=== PATIENT | male | born 1975 | race African-American/Black ===

== ENCOUNTER 2016-11-21 11:26 | Inpatient (IN) | payer OTHER ==
[2016-11-21 15:42] VITALS: BMI 21.6
--- NOTE | 2016-11-21 16:22 | HP ---
[id number] 4d 4-Moderate,w/Arms Extend Anxiety: 4-Mod. Anxious/Guarded Agitation: 4-Moderately Restless Paroxysmal Sweats: 1-Minimal Palms Moist Orientation: 0-Oriented Tacttile Disturbances: 0-None Auditory Disturbances: 0-None Visual Disturbances: 0-None Headache: 0-None Present CIWA-Ar Total Score: 14 Admission ROS BHS - HPI Chief Complaint: withdrawal sx Allergies/Adverse Reactions: Allergies Allergy/AdvReac Type Severity Reaction Status Date / Time shellfish derived Allergy Severe Hives Verified 11/21/16 16:17 No Known Drug Allergies Allergy Verified 11/21/16 16:33 History of Present Illness: 41 years old male with long history of alcohol nicotine dependence has asthma denies mental illness is admitted to detox Exam Limitations: No Limitations - Ebola screening Have you traveled outside of the country in the last 21 days: No Have you had contact with anyone from an Ebola affected area: No Have you been sick,other than usual withdrawal symptoms: No Do you have a fever: No - Review of Systems Constitutional: Chills, Loss of Appetite, Changes in sleep, Unintentional Wgt. Loss, Unexplained wgt Loss EENT: reports: No Symptoms Reported Respiratory: reports: SOB with Exertion Cardiac: reports: No Symptoms Reported GI: reports: Nausea, Poor Appetite, Poor Fluid Intake, Abdominal cramping : reports: No Symptoms Reported Musculoskeletal: reports: No Symptoms Reported Integumentary: reports: Dryness Neuro: reports: Tremors Endocrine: reports: No Symptoms Reported Hematology: reports: No Symptoms Reported Psychiatric: reports: No Sypmtoms Reported, Judgement Intact, Mood/Affect Appropiate, Orientated x3 Other Systems: Reviewed and Negative Patient History - Patient Medical History Hx Anemia: No Hx Asthma: Yes Hx Chronic Obstructive Pulmonary Disease (COPD): No Hx Cancer: No Hx Cardiac Disorders: No Hx Congestive Heart Failure: No Hx Hypertension: No Hx Hypercholesterolemia: No Hx Pacemaker: No HX Cerebrovascular Accident: No Hx Seizures: No Hx Dementia: No Hx Diabetes: No Hx Gastrointestinal Disorders: No Hx Liver Disease: No Hx Genitourinary Disorders: No Hx Sexually Transmitted Disorders: No Hx Renal Disease (ESRD): No Hx Thyroid Disease: No Hx Human Immunodeficiency Virus (HIV): No Hx Hepatitis C: No Hx Depression: No Hx Suicide Attempt: No Hx Bipolar Disorder: No Hx Schizophrenia: No - Patient Surgical History Past Surgical History: No - PPD History Previous Implant?: Yes Documented Results: Negative w/o proof Implanted On Prior [facility] Admission?: No PPD to be Administered?: Yes - Smoking Cessation Smoking history: Current every day smoker Have you smoked in the past 12 months: Yes Aproximately how many cigarettes per day: 10 Cigars Per Day: 0 Hx Chewing Tobacco Use: No Initiated information on smoking cessation: Yes 'Breaking Loose' booklet given: 11/21/16 - Substance & Tx. History Hx Alcohol Use: Yes Hx Substance Use: No Substance Use Type: Alcohol Hx Substance Use Treatment: No - Substances Abused Alcohol-beer/wine/vodka Route: Oral Frequency: Daily Amount used: 1 case/2-3 pts. BEER+VOLKA Age of first use: 14 Date of Last Use: 11/20/16 Family Disease History - Family Disease History Family Disease History: Respiratory: Grandparent, Father, Mother, Brother, Sister, Son, Daughter Admission Physical Exam BHS - Vital Signs Vital Signs: Vital Signs - 24 hr 11/21/16 15:40 Temperature 97.0 F L Pulse Rate 67 Respiratory 18 Rate Blood Pressure 102/71 - Physical General Appearance: Yes: Appropriately Dressed, Mild Distress, Thin, Tremorous, Irritable, Sweating, Anxious HEENTM: Yes: Hearing grossly Normal, Normal ENT Inspection, Normocephalic, Normal Voice Respiratory: Yes: Chest Non-Tender, Lungs Clear, Normal Breath Sounds, No Respiratory Distress, No Accessory Muscle Use Neck: Yes: Supple, Trachea in good position Breast: Yes: Breasts Symetrical Cardiology: Yes: Regular Rhythm, S1, S2, Bradycardia Abdominal: Yes: Non Tender, Soft Genitourinary: Yes: Within Normal Limits Back: Yes: Normal Inspection Musculoskeletal: Yes: full range of Motion, Gait Steady Extremities: Yes: Normal Inspection, Normal Range of Motion, Non-Tender, Tremors Neurological: Yes: Fully Oriented, Alert, Motor Strength 5/5, Normal Mood/Affect , Normal Response Integumentary: Yes: Dry, Warm Lymphatic: Yes: Within Normal Limits - Diagnostic (1) Alcohol dependence with uncomplicated withdrawal Current Visit: Yes Status: Acute (2) Asthma Current Visit: Yes Status: Chronic Qualifiers: Asthma severity: mild persistent Asthma complication type: with status asthmaticus Qualified Code(s): J45.32 - Mild persistent asthma with status asthmaticus (3) Weight loss Current Visit: Yes Status: Acute (4) Nicotine dependence Current Visit: Yes Status: Acute Qualifiers: Nicotine product type: cigarettes Substance use status: in withdrawal Qualified Code(s): F17.213 - Nicotine dependence, cigarettes, with withdrawal (5) Dry skin Current Visit: Yes Status: Acute Cleared for Admission BHS - Detox or Rehab BHS Level of Care: Medically Managed Detox Regimen/Protocol: Librium BHS Breath Alcohol Content Breath Alcohol Content: 0 Vital Signs - Vital Signs Vital Signs Refused: No Temperature: 97 F Temperature Source: Oral Pulse Rate: 67 Respiratory Rate: 18 Blood Pressure: 102/71 BP Location: Left Arm Blood Pressure Position: Sitting - Height Height: 5 ft 5 in - Weight Weight: 130 lb Weight Measurement Method: Standing Scale Body Mass Index (BMI): 21.6 - Bowel Function Bowel Movement: Yes Urine Drug Screen - Control Is Test Valid: Yes - Results Drug Screen Negative: Yes
[2016-11-21] MEDS ORDERED: MAGNESIUM HYDROX 2400MG/30ML ORAL SUSPENSION 30 ML CUP PO PRN (16:24)
[2016-11-21] MEDS ORDERED: diphenhydrAMINE HCL 50 MG CAPSULE PO PRN (16:24)
[2016-11-21] MEDS ORDERED: MAGNESIUM CITRATE 300 ML BOTTLE PO PRN (16:24)
[2016-11-21] MEDS ORDERED: MENTHOL/PHENOL 1 EACH UD MM PRN (16:24)
[2016-11-21] MEDS ORDERED: chlordiazePOXIDE HCL 25 MG CAPSULE PO PRN (16:24)
[2016-11-21] MEDS ORDERED: hydrOXYzine PAMOATE 50 MG CAPSULE (FP) PO PRN (16:24)
[2016-11-21] MEDS ORDERED: IBUPROFEN 400 MG TABLET (FP) PO PRN (16:24)
[2016-11-21] MEDS ORDERED: ACETAMINOPHEN 325 MG TABLET (FP) PO PRN (16:24)
[2016-11-21] MEDS ORDERED: LOPERAMIDE HCL 2 MG CAPSULE PO PRN (16:24)
[2016-11-21] MEDS ORDERED: MAG HYDROX/AL HYDROX/SIMETH 30 ML UNIT-DOSE CUP PO PRN (16:24)
[2016-11-21] MEDS ORDERED: P-EPHED 60MG/TRIPROLIDI 2.5MG TABLET PO PRN (16:24)
[2016-11-21] MEDS ORDERED: guaiFENesin/D-METHORPHAN HB 10 ML UNIT-DOSE CUPS PO PRN (16:24)
[2016-11-21] MEDS ORDERED: ALBUTEROL SO4 6.7 GM HFA INHALER IH PRN (16:26)
[2016-11-21] MEDS ORDERED: COLLOIDAL OATMEAL 1 BAR EACH TP PRN (16:33)
[2016-11-21] MEDS: THIAMINE HCL 100 MG TABLET (FP) PO SCH (22:21)
[2016-11-21] MEDS: chlordiazePOXIDE HCL 25 MG CAPSULE PO SCH (22:21)
[2016-11-21] MEDS: MINERAL OIL/PETROLAT/WATER TOPICAL CREAM 113 GM JAR TP SCH (22:22)
[2016-11-22] MEDS: chlordiazePOXIDE HCL 25 MG CAPSULE PO SCH ×4 (05:40→22:49)
[2016-11-22 10:01] LABS: MCH 35.6 pg (25.7-33.7); MCHC 33.1 g/dl (32.0-35.9); MEAN CELL VOLUME 107.6 fl (80-96); PLATELET COUNT 236 K/MM3 (134-434); WHITE BLOOD COUNT 7.6 K/mm3 (4.0-10.0)
[2016-11-22 10:23] LABS: ALBUMIN 4.4 g/dl (3.4-5.0); ALK PHOS 76 U/L (45-117); ANION GAP 7 (8-16); BILIRUBIN,TOTAL 1.9 mg/dL (0.2-1.0); CALCIUM 9.8 mg/dL (8.5-10.1); CO2 32 mmol/L (21-32); CREATININE 0.9 mg/dL (0.7-1.3); GLUCOSE,RANDOM 80 mg/dL (74-106); SGOT/AST 37 U/L (15-37); SGPT/ALT 29 U/L (12-78); TOT PROT 8.7 g/dl (6.4-8.2)
[2016-11-22] MEDS: NICOTINE 14 MG/24 HOURS TOPICAL PATCH TD SCH (10:37)
[2016-11-22] MEDS: PRENATAL VITAMINS W/ FOLIC ACID TABLET (FP) PO SCH (10:37)
[2016-11-22] MEDS: NICOTINE POLACRILEX 2 MG GUM BC PRN ×2 (10:38→22:51)
--- NOTE | 2016-11-22 11:10 | PN ---
[facility] CIWA - CIWA Score Nausea/Vomitin-No Nausea/No Vomiting Muscle Tremors: 4-Moderate,w/Arms Extend Anxiety: 4-Mod. Anxious/Guarded Agitation: 4-Moderately Restless Paroxysmal Sweats: 1-Minimal Palms Moist Orientation: 0-Oriented Tacttile Disturbances: 3-Moderate Itch/Numb/Burn Auditory Disturbances: 0-None Visual Disturbances: 0-None Headache: 0-None Present CIWA-Ar Total Score: 16 S Progress Note (SOAP) Subjective: ANXIETY,TREMORS,FATIGUE Objective: 11/22/16 11:09 Vital Signs Temperature 97.0 F L 11/22/16 09:16 Pulse Rate 69 11/22/16 09:16 Respiratory Rate 18 11/22/16 09:16 Blood Pressure 92/65 11/22/16 09:16 O2 Sat by Pulse Oximetry (%) Laboratory Last Values WBC 7.6 K/mm3 (4.0-10.0) 11/22/16 06:00 RBC 3.86 M/mm3 (4.00-5.60) L 11/22/16 06:00 Hgb 13.8 GM/dL (11.7-16.9) 11/22/16 06:00 Hct 41.5 % (35.4-49) 11/22/16 06:00 MCV 107.6 fl (80-96) H 11/22/16 06:00 MCHC 33.1 g/dl (32.0-35.9) 11/22/16 06:00 RDW 13.0 % (11.9-15.9) 11/22/16 06:00 Plt Count 236 K/MM3 (134-434) 11/22/16 06:00 MPV 10.0 fl (7.5-11.1) 11/22/16 06:00 Sodium 137 mmol/L (136-145) 11/22/16 06:00 Potassium 3.9 mmol/L (3.5-5.1) 11/22/16 06:00 Chloride 98 mmol/L (98-107) 11/22/16 06:00 Carbon Dioxide 32 mmol/L (21-32) 11/22/16 06:00 Anion Gap 7 (8-16) L 11/22/16 06:00 BUN 12 mg/dL (7-18) 11/22/16 06:00 Creatinine 0.9 mg/dL (0.7-1.3) 11/22/16 06:00 Creat Clearance w eGFR > 60 (>60) 11/22/16 06:00 Random Glucose 80 mg/dL (74-106) 11/22/16 06:00 Calcium 9.8 mg/dL (8.5-10.1) 11/22/16 06:00 Total Bilirubin 1.9 mg/dL (0.2-1.0) H 11/22/16 06:00 AST 37 U/L (15-37) 11/22/16 06:00 ALT 29 U/L (12-78) 11/22/16 06:00 Alkaline Phosphatase 76 U/L (45-117) 11/22/16 06:00 Total Protein 8.7 g/dl (6.4-8.2) H 11/22/16 06:00 Albumin 4.4 g/dl (3.4-5.0) 11/22/16 06:00 Assessment: 11/22/16 11:10 WITHDRAWAL SX Plan: CONTINUE DETOX
--- NOTE | 2016-11-22 13:12 | EKG ---
Test Reason : Blood Pressure : / mmHG Vent. Rate : 055 BPM Atrial Rate : 055 BPM P-R Int : 156 ms QRS Dur : 098 ms QT Int : 414 ms P-R-T Axes : 069 085 077 degrees QTc Int : 396 ms SINUS BRADYCARDIA INCOMPLETE RIGHT BUNDLE BRANCH BLOCK BORDERLINE ECG NO PREVIOUS ECGS AVAILABLE Confirmed by KURTIS MILLS, MARIA D ([id number]) on 11/22/2016 1:12:08 PM Referred By: Confirmed By:MARIA D HULL MD
[2016-11-22] MEDS: MINERAL OIL/PETROLAT/WATER TOPICAL CREAM 113 GM JAR TP SCH (22:49)
[2016-11-22] MEDS: THIAMINE HCL 100 MG TABLET (FP) PO SCH (22:49)
[2016-11-23] MEDS: chlordiazePOXIDE HCL 25 MG CAPSULE PO SCH ×3 (05:38→17:00)
[2016-11-23 10:24] LABS: URINE APPEARANCE CLEAR; URINE BILIRUBIN NEGATIVE (NEGATIVE); URINE BLOOD NEGATIVE (NEGATIVE); URINE COLOR LTYELLOW; URINE GLUCOSE (UA) NEGATIVE (NEGATIVE); URINE KETONE NEGATIVE (NEGATIVE); URINE NITRITE NEGATIVE (NEGATIVE); URINE PROTEIN NEGATIVE (NEGATIVE); URINE UROBILINOGEN NEGATIVE E.U./dl (0.2-1.0)
--- NOTE | 2016-11-23 10:47 | PN ---
[facility] CIWA - CIWA Score Nausea/Vomitin-No Nausea/No Vomiting Muscle Tremors: 4-Moderate,w/Arms Extend Anxiety: 4-Mod. Anxious/Guarded Agitation: 4-Moderately Restless Paroxysmal Sweats: 1-Minimal Palms Moist Orientation: 0-Oriented Tacttile Disturbances: 3-Moderate Itch/Numb/Burn Auditory Disturbances: 0-None Visual Disturbances: 0-None Headache: 0-None Present CIWA-Ar Total Score: 16 BHS Progress Note (SOAP) Subjective: CALM IN BED. DETOX PROTOCOL PROCEEDING WELL Objective: 11/23/16 10:46 Vital Signs Temperature 97.6 F 11/23/16 08:57 Pulse Rate 67 11/23/16 08:57 Respiratory Rate 18 11/23/16 08:57 Blood Pressure 91/63 11/23/16 08:57 O2 Sat by Pulse Oximetry (%) Laboratory Last Values WBC 7.6 K/mm3 (4.0-10.0) 11/22/16 06:00 RBC 3.86 M/mm3 (4.00-5.60) L 11/22/16 06:00 Hgb 13.8 GM/dL (11.7-16.9) 11/22/16 06:00 Hct 41.5 % (35.4-49) 11/22/16 06:00 MCV 107.6 fl (80-96) H 11/22/16 06:00 MCHC 33.1 g/dl (32.0-35.9) 11/22/16 06:00 RDW 13.0 % (11.9-15.9) 11/22/16 06:00 Plt Count 236 K/MM3 (134-434) 11/22/16 06:00 MPV 10.0 fl (7.5-11.1) 11/22/16 06:00 Sodium 137 mmol/L (136-145) 11/22/16 06:00 Potassium 3.9 mmol/L (3.5-5.1) 11/22/16 06:00 Chloride 98 mmol/L (98-107) 11/22/16 06:00 Carbon Dioxide 32 mmol/L (21-32) 11/22/16 06:00 Anion Gap 7 (8-16) L 11/22/16 06:00 BUN 12 mg/dL (7-18) 11/22/16 06:00 Creatinine 0.9 mg/dL (0.7-1.3) 11/22/16 06:00 Creat Clearance w eGFR > 60 (>60) 11/22/16 06:00 Random Glucose 80 mg/dL (74-106) 11/22/16 06:00 Calcium 9.8 mg/dL (8.5-10.1) 11/22/16 06:00 Total Bilirubin 1.9 mg/dL (0.2-1.0) H 11/22/16 06:00 AST 37 U/L (15-37) 11/22/16 06:00 ALT 29 U/L (12-78) 11/22/16 06:00 Alkaline Phosphatase 76 U/L (45-117) 11/22/16 06:00 Total Protein 8.7 g/dl (6.4-8.2) H 11/22/16 06:00 Albumin 4.4 g/dl (3.4-5.0) 11/22/16 06:00 RPR Titer Nonreactive (NONREACTIVE) 11/22/16 06:00 Assessment: 11/23/16 10:46 SLIGHT WITHDRAWAL SX Plan: CONTINUE DETOX
[2016-11-23 10:48] LABS: URINE LEUK ESTERASE TRACE (NEGATIVE)
[2016-11-23] MEDS: PRENATAL VITAMINS W/ FOLIC ACID TABLET (FP) PO SCH (10:49)
[2016-11-23] MEDS: NICOTINE 14 MG/24 HOURS TOPICAL PATCH TD SCH (10:49)
[2016-11-23] MEDS: NICOTINE POLACRILEX 2 MG GUM BC PRN (10:49)
[2016-11-23 11:10] LABS: URINE BACTERIA RARE /hpf (NONE SEEN); URINE MUCUS RARE; URINE RBC 1 /hpf (0-3); URINE WBC 3 /hpf (3-5)
[2016-11-23] MEDS: THIAMINE HCL 100 MG TABLET (FP) PO SCH (22:34)
[2016-11-23] MEDS: chlordiazePOXIDE 5 MG CAPSULE PO SCH (22:34)
[2016-11-23] MEDS: MINERAL OIL/PETROLAT/WATER TOPICAL CREAM 113 GM JAR TP SCH (22:40)
[2016-11-24] MEDS: chlordiazePOXIDE 5 MG CAPSULE PO SCH ×3 (05:48→17:21)
[2016-11-24] MEDS: NICOTINE 14 MG/24 HOURS TOPICAL PATCH TD SCH (10:32)
[2016-11-24] MEDS: PRENATAL VITAMINS W/ FOLIC ACID TABLET (FP) PO SCH (10:32)
[2016-11-24] MEDS: NICOTINE POLACRILEX 2 MG GUM BC PRN ×2 (10:33→17:23)
--- NOTE | 2016-11-24 13:51 | PN ---
S Progress Note (SOAP) Subjective: fatigue, sleepiness Objective: 11/24/16 13:50 Vital Signs - 8 hr 11/24/16 11/24/16 06:34 10:33 Temperature 97.4 F L 97.2 F L Pulse Rate 81 70 Respiratory 16 18 Rate Blood Pressure 94/59 89/60 Laboratory Last Values WBC 7.6 K/mm3 (4.0-10.0) 11/22/16 06:00 RBC 3.86 M/mm3 (4.00-5.60) L 11/22/16 06:00 Hgb 13.8 GM/dL (11.7-16.9) 11/22/16 06:00 Hct 41.5 % (35.4-49) 11/22/16 06:00 MCV 107.6 fl (80-96) H 11/22/16 06:00 MCHC 33.1 g/dl (32.0-35.9) 11/22/16 06:00 RDW 13.0 % (11.9-15.9) 11/22/16 06:00 Plt Count 236 K/MM3 (134-434) 11/22/16 06:00 MPV 10.0 fl (7.5-11.1) 11/22/16 06:00 Sodium 137 mmol/L (136-145) 11/22/16 06:00 Potassium 3.9 mmol/L (3.5-5.1) 11/22/16 06:00 Chloride 98 mmol/L (98-107) 11/22/16 06:00 Carbon Dioxide 32 mmol/L (21-32) 11/22/16 06:00 Anion Gap 7 (8-16) L 11/22/16 06:00 BUN 12 mg/dL (7-18) 11/22/16 06:00 Creatinine 0.9 mg/dL (0.7-1.3) 11/22/16 06:00 Creat Clearance w eGFR > 60 (>60) 11/22/16 06:00 Random Glucose 80 mg/dL (74-106) 11/22/16 06:00 Calcium 9.8 mg/dL (8.5-10.1) 11/22/16 06:00 Total Bilirubin 1.9 mg/dL (0.2-1.0) H 11/22/16 06:00 AST 37 U/L (15-37) 11/22/16 06:00 ALT 29 U/L (12-78) 11/22/16 06:00 Alkaline Phosphatase 76 U/L (45-117) 11/22/16 06:00 Total Protein 8.7 g/dl (6.4-8.2) H 11/22/16 06:00 Albumin 4.4 g/dl (3.4-5.0) 11/22/16 06:00 Urine Color Ltyellow 11/23/16 08:08 Urine Appearance Clear 11/23/16 08:08 Urine pH 6.0 (5.0-8.0) 11/23/16 08:08 Ur Specific [place] 1.015 (1.005-1.025) 11/23/16 08:08 Urine Protein Negative (NEGATIVE) 11/23/16 08:08 Urine Glucose (UA) Negative (NEGATIVE) 11/23/16 08:08 Urine Ketones Negative (NEGATIVE) 11/23/16 08:08 Urine Blood Negative (NEGATIVE) 11/23/16 08:08 Urine Nitrite Negative (NEGATIVE) 11/23/16 08:08 Urine Bilirubin Negative (NEGATIVE) 11/23/16 08:08 Urine Urobilinogen Negative E.U./dl (0.2-1.0) 11/23/16 08:08 Ur Leukocyte Esterase Trace (NEGATIVE) H 11/23/16 08:08 Urine RBC 1 /hpf (0-3) 11/23/16 08:08 Urine WBC 3 /hpf (3-5) 11/23/16 08:08 Ur Epithelial Cells Rare /hpf (FEW) 11/23/16 08:08 Urine Bacteria Rare /hpf (NONE SEEN) 11/23/16 08:08 Urine Mucus Rare 11/23/16 08:08 RPR Titer Nonreactive (NONREACTIVE) 11/22/16 06:00 labs noted Assessment: 11/24/16 13:50 resolving withdrawal sxs Plan: continue detox
[2016-11-24] MEDS: chlordiazePOXIDE HCL 10 MG CAPSULE PO SCH (22:52)
[2016-11-24] MEDS: MINERAL OIL/PETROLAT/WATER TOPICAL CREAM 113 GM JAR TP SCH (22:52)
[2016-11-24] MEDS: THIAMINE HCL 100 MG TABLET (FP) PO SCH (22:52)
[2016-11-25] MEDS: chlordiazePOXIDE HCL 10 MG CAPSULE PO SCH ×2 (06:00→10:31)
[2016-11-25] MEDS: PRENATAL VITAMINS W/ FOLIC ACID TABLET (FP) PO SCH (10:30)
[2016-11-25] MEDS: NICOTINE 14 MG/24 HOURS TOPICAL PATCH TD SCH (10:31)
[2016-11-25] MEDS: NICOTINE POLACRILEX 2 MG GUM BC PRN (10:31)
[2016-11-25 10:39] VITALS: BP 97/60; PULSE 73; TEMP 96.1
--- NOTE | 2016-11-25 12:12 | DS ---
[facility] Detox Discharge Summary Admission Date: 11/21/16 Discharge Date: 11/25/16 - History Present History: Alcohol Dependence Pertinent Past History: Asthma, mild intermittent - Physical Exam Results Vital Signs: Vital Signs Temperature 96.1 F L 11/25/16 10:39 Pulse Rate 73 11/25/16 10:39 Respiratory Rate 18 11/25/16 10:39 Blood Pressure 97/60 11/25/16 10:39 O2 Sat by Pulse Oximetry (%) Noted with hypotension: asymptomatic, encouraged to drink lots of water (at least 8 cups/day) Pertinent Admission Physical Exam Findings: Withdrawal symptoms Laboratory Tests 11/22/16 11/22/16 11/22/16 06:00 06:00 06:00 WBC 7.6 RBC 3.86 L Hgb 13.8 Hct 41.5 MCV 107.6 H MCHC 33.1 RDW 13.0 Plt Count 236 MPV 10.0 Sodium 137 Potassium 3.9 Chloride 98 Carbon Dioxide 32 Anion Gap 7 L BUN 12 Creatinine 0.9 Creat Clearance w eGFR > 60 Random Glucose 80 Calcium 9.8 Total Bilirubin 1.9 H AST 37 ALT 29 Alkaline Phosphatase 76 Total Protein 8.7 H Albumin 4.4 Urine Color Urine Appearance Urine pH Ur Specific [place] Urine Protein Urine Glucose (UA) Urine Ketones Urine Blood Urine Nitrite Urine Bilirubin Urine Urobilinogen Ur Leukocyte Esterase Urine RBC Urine WBC Ur Epithelial Cells Urine Bacteria Urine Mucus RPR Titer Nonreactive 11/23/16 08:08 WBC RBC Hgb Hct MCV MCHC RDW Plt Count MPV Sodium Potassium Chloride Carbon Dioxide Anion Gap BUN Creatinine Creat Clearance w eGFR Random Glucose Calcium Total Bilirubin AST ALT Alkaline Phosphatase Total Protein Albumin Urine Color Ltyellow Urine Appearance Clear Urine pH 6.0 Ur Specific [place] 1.015 Urine Protein Negative Urine Glucose (UA) Negative Urine Ketones Negative Urine Blood Negative Urine Nitrite Negative Urine Bilirubin Negative Urine Urobilinogen Negative Ur Leukocyte Esterase Trace H Urine RBC 1 Urine WBC 3 Ur Epithelial Cells Rare Urine Bacteria Rare Urine Mucus Rare RPR Titer Labs noted: - Treatment Hospital Course: Detox Protocol Followed, Detoxed Safely, Responded well, Discharged Condition Good - Medication Discharge Medications: Ambulatory Orders Albuterol Sulfate Inhaler - [Ventolin Hfa Inhaler -] 2 inh PO Q4H PRN 11/21/16 - Diagnosis (1) Alcohol dependence with uncomplicated withdrawal Status: Acute (2) Nicotine dependence Status: Chronic Qualifiers: Nicotine product type: cigarettes Substance use status: in withdrawal Qualified Code(s): F17.213 - Nicotine dependence, cigarettes, with withdrawal (3) Asthma Status: Chronic Qualifiers: Asthma severity: mild persistent Asthma complication type: with status asthmaticus Qualified Code(s): J45.32 - Mild persistent asthma with status asthmaticus (4) Hypotension Status: Acute Qualifiers: Hypotension type: unspecified hypotension type Qualified Code(s): I95.9 - Hypotension, unspecified - AMA Did Patient Leave Against Medical Advice: No
== END 2016-11-25 11:10 | disposition other institution (70) | DRG 775 ==
LOC: YASAS 11:26 → Y3N 16:36
PROVIDERS: ADMIT Internal Medicine; ATTEND Internal Medicine
PROC: HZ2ZZZZ Detoxification Services for Substance Abuse Treatment (ICD-10-PCS; principal; 2016-11-21)
DX: F10.230 Alcohol dependence with withdrawal, uncomplicated (principal); F17.213 Nicotine dependence, cigarettes, with withdrawal; J45.32 Mild persistent asthma with status asthmaticus; I95.9 Hypotension, unspecified; R00.1 Bradycardia, unspecified; L98.8 Other specified disorders of the skin and subcutaneous tissue; Z87.898 Personal history of other specified conditions
CPT/HCPCS: 36415; 80053; 81003; 81015; 85027; 86593; 93005; 93010

== ENCOUNTER 2016-11-25 11:03 | Inpatient (IN) | payer OTHER ==
[2016-11-25] MEDS ORDERED: ALBUTEROL SO4 6.7 GM HFA INHALER IH PRN (14:18)
[2016-11-25] MEDS ORDERED: IBUPROFEN 400 MG TABLET (FP) PO PRN (14:18)
[2016-11-25] MEDS ORDERED: LOPERAMIDE HCL 2 MG CAPSULE PO PRN (14:18)
[2016-11-25] MEDS ORDERED: MAGNESIUM CITRATE 300 ML BOTTLE PO PRN (14:18)
[2016-11-25] MEDS ORDERED: P-EPHED 60MG/TRIPROLIDI 2.5MG TABLET PO PRN (14:18)
[2016-11-25] MEDS ORDERED: guaiFENesin/D-METHORPHAN HB 10 ML UNIT-DOSE CUPS PO PRN (14:18)
[2016-11-25] MEDS ORDERED: MENTHOL/PHENOL 1 EACH UD MM PRN (14:18)
[2016-11-25] MEDS ORDERED: MAG HYDROX/AL HYDROX/SIMETH 30 ML UNIT-DOSE CUP PO PRN (14:18)
[2016-11-25] MEDS ORDERED: ACETAMINOPHEN 325 MG TABLET (FP) PO PRN (14:18)
[2016-11-25] MEDS ORDERED: MAGNESIUM HYDROX 2400MG/30ML ORAL SUSPENSION 30 ML CUP PO PRN (14:18)
--- NOTE | 2016-11-25 14:18 | HP ---
[facility] Rehab Assess/Revision - Admission History Admitted to Rehab from: [facility] Date of Admission to Rehab: 11/25/16 - Vital signs Vital Signs: Vital Signs Period Temp Pulse Resp BP Sys/Lux Pulse Ox Last 24 Hr 98.0 F 76 18 126/70 - Findings Detox History & Physical reviewed: Yes Concur with findings: Yes
[2016-11-25] MEDS: THIAMINE HCL 100 MG TABLET (FP) PO SCH (21:27)
[2016-11-25] MEDS: NICOTINE POLACRILEX 2 MG GUM BUC PRN (21:27)
[2016-11-25] MEDS: diphenhydrAMINE HCL 50 MG CAPSULE PO PRN (21:27)
[2016-11-26] MEDS: NICOTINE 14 MG/24 HOURS TOPICAL PATCH TD SCH (10:30)
[2016-11-26] MEDS: PRENATAL VITAMINS W/ FOLIC ACID TABLET (FP) PO SCH (10:30)
[2016-11-26] MEDS: NICOTINE POLACRILEX 2 MG GUM BUC PRN ×2 (10:31→21:56)
[2016-11-26] MEDS: THIAMINE HCL 100 MG TABLET (FP) PO SCH (21:10)
[2016-11-26] MEDS: diphenhydrAMINE HCL 50 MG CAPSULE PO PRN (21:10)
[2016-11-27] MEDS: PRENATAL VITAMINS W/ FOLIC ACID TABLET (FP) PO SCH (10:15)
[2016-11-27] MEDS: NICOTINE POLACRILEX 2 MG GUM BUC PRN ×2 (10:16→20:15)
[2016-11-27] MEDS: NICOTINE 14 MG/24 HOURS TOPICAL PATCH TD SCH (10:16)
[2016-11-27 12:31] LABS: HIV 1 & 2 AB NEGATIVE; HIV 1 AGp24 NEGATIVE
[2016-11-27] MEDS: THIAMINE HCL 100 MG TABLET (FP) PO SCH (21:02)
[2016-11-27] MEDS: diphenhydrAMINE HCL 50 MG CAPSULE PO PRN (21:02)
[2016-11-28] MEDS: NICOTINE POLACRILEX 2 MG GUM BUC PRN ×2 (06:25→21:11)
[2016-11-28] MEDS: NICOTINE 14 MG/24 HOURS TOPICAL PATCH TD SCH (09:39)
[2016-11-28] MEDS: PRENATAL VITAMINS W/ FOLIC ACID TABLET (FP) PO SCH (09:39)
[2016-11-28] MEDS: THIAMINE HCL 100 MG TABLET (FP) PO SCH (21:11)
[2016-11-28] MEDS: diphenhydrAMINE HCL 50 MG CAPSULE PO PRN (21:11)
[2016-11-29] MEDS: NICOTINE POLACRILEX 2 MG GUM BUC PRN ×3 (06:50→21:16)
[2016-11-29] MEDS: PRENATAL VITAMINS W/ FOLIC ACID TABLET (FP) PO SCH (09:40)
[2016-11-29] MEDS: NICOTINE 14 MG/24 HOURS TOPICAL PATCH TD SCH (10:21)
--- NOTE | 2016-11-29 13:13 | HP ---
Psychiatrist Admission - Data Date of interview: 11/29/16 Admission source: 3N Identifying data: This is the first 3W inpatient rehabilitation admission for this 41 year old single AA male father of 4, who is unemployed and domiciled, residing in [facility]. Medical History: Asthma, allergic to shelfish. Smokes 5 cigarettes a day. Psychiatric History: Patient reports was seen by a psychiatrist in 2016 while in [facility] rehabilitation outpatient clinic to address depression related to stressors he had at that time, he states was put on medication - antidepressant , he can't recall name, was on meds. a couple of months as well was on therapy session, felt better and stopped treatment. Reports ela feels fine. Physical/Sexual Abuse/Trauma History: Patient denies history of sexual, physical and verbal abuse. Patient denies history of sexual, physical and verbal abuse. Vital Signs: Vital Signs - 24 hr 11/29/16 11/29/16 11/29/16 00:30 03:30 06:34 Temperature 98.4 F Pulse Rate 63 Respiratory 18 18 18 Rate Blood Pressure 102/56 Allergies/Adverse Reactions: Allergies Allergy/AdvReac Type Severity Reaction Status Date / Time shellfish derived Allergy Severe Hives Verified 11/21/16 16:17 No Known Drug Allergies Allergy Verified 11/21/16 16:33 Date of last physical exam: 11/21/16 Concur with the findings of this exam: Yes - Substance Abuse/Tx History Hx Alcohol Use: Yes (daily beer and vodka/1 case/2-3 pts) Hx Substance Use: No Substance Use Type: Alcohol (started drinking at age of 14) Hx Substance Use Treatment: Yes (OPD [facility]) - Admission Criteria Previous failed treatment: Yes Poor recovery environment: Yes Comorbidities: No Lacks judgement: Yes Mental Status Exam - Mental Status Exam Alert and Oriented to: Time, Place, Person Cognitive Function: Good Patient Appearance: Well Groomed Mood: Hopeful Affect: Appropriate, Mood Congruent Patient Behavior: Appropriate, Cooperative Speech Pattern: Clear, Appropriate Voice Loudness: Normal Thought Process: Intact Thought Disorder: Not Present Hallucinations: None, Denies Suicidal Ideation: None, Denies Homicidal Ideation: None Insight/Judgement: Good Sleep: Well Appetite: Good Muscle strength/Tone: Normal Gait/Station: Normal Psychiatric Findings - Problem List ([place] 1, 2,3) (1) Asthma Current Visit: No Status: Chronic Qualifiers: Asthma severity: mild persistent Asthma complication type: with status asthmaticus Qualified Code(s): J45.32 - Mild persistent asthma with status asthmaticus (2) Nicotine dependence Current Visit: No Status: Chronic Qualifiers: Nicotine product type: cigarettes Substance use status: in withdrawal Qualified Code(s): F17.213 - Nicotine dependence, cigarettes, with withdrawal (3) Alcohol dependence Current Visit: Yes Status: Acute - Initial Treatment Plan Initial Treatment Plan: will monitor progress as needed.
[2016-11-29] MEDS: diphenhydrAMINE HCL 50 MG CAPSULE PO PRN (21:15)
[2016-11-29] MEDS: THIAMINE HCL 100 MG TABLET (FP) PO SCH (21:15)
[2016-11-30] MEDS: NICOTINE POLACRILEX 2 MG GUM BUC PRN ×3 (06:41→21:34)
[2016-11-30] MEDS: PRENATAL VITAMINS W/ FOLIC ACID TABLET (FP) PO SCH (09:36)
[2016-11-30] MEDS: NICOTINE 14 MG/24 HOURS TOPICAL PATCH TD SCH (09:36)
[2016-11-30] MEDS: diphenhydrAMINE HCL 50 MG CAPSULE PO PRN (21:34)
[2016-11-30] MEDS: THIAMINE HCL 100 MG TABLET (FP) PO SCH (21:34)
[2016-12-01] MEDS: NICOTINE POLACRILEX 2 MG GUM BUC PRN ×3 (06:26→21:13)
[2016-12-01] MEDS: NICOTINE 14 MG/24 HOURS TOPICAL PATCH TD SCH (09:38)
[2016-12-01] MEDS: PRENATAL VITAMINS W/ FOLIC ACID TABLET (FP) PO SCH (09:38)
[2016-12-01] MEDS: diphenhydrAMINE HCL 50 MG CAPSULE PO PRN (21:12)
[2016-12-01] MEDS: THIAMINE HCL 100 MG TABLET (FP) PO SCH (21:12)
[2016-12-02] MEDS: NICOTINE POLACRILEX 2 MG GUM BUC PRN ×3 (07:02→21:19)
[2016-12-02] MEDS: NICOTINE 14 MG/24 HOURS TOPICAL PATCH TD SCH (09:29)
[2016-12-02] MEDS: PRENATAL VITAMINS W/ FOLIC ACID TABLET (FP) PO SCH (09:29)
[2016-12-02] MEDS: diphenhydrAMINE HCL 50 MG CAPSULE PO PRN (21:19)
[2016-12-02] MEDS: THIAMINE HCL 100 MG TABLET (FP) PO SCH (21:19)
[2016-12-03] MEDS: PRENATAL VITAMINS W/ FOLIC ACID TABLET (FP) PO SCH (09:44)
[2016-12-03] MEDS: NICOTINE 14 MG/24 HOURS TOPICAL PATCH TD SCH (09:44)
[2016-12-03] MEDS: NICOTINE POLACRILEX 2 MG GUM BUC PRN ×2 (09:44→21:21)
[2016-12-03] MEDS: diphenhydrAMINE HCL 50 MG CAPSULE PO PRN (21:21)
[2016-12-03] MEDS: THIAMINE HCL 100 MG TABLET (FP) PO SCH (21:21)
[2016-12-04] MEDS: PRENATAL VITAMINS W/ FOLIC ACID TABLET (FP) PO SCH (09:45)
[2016-12-04] MEDS: NICOTINE POLACRILEX 2 MG GUM BUC PRN ×2 (09:46→21:29)
[2016-12-04] MEDS: NICOTINE 14 MG/24 HOURS TOPICAL PATCH TD SCH (10:21)
--- NOTE | 2016-12-04 13:22 | PN ---
Psychiatric Progress Note Vital Signs: Vital Signs Period Temp Pulse Resp BP Sys/Lux Pulse Ox Last 24 Hr 98.6 F 64 18-18 93/54 Date of Session: 12/04/16 Chief Complaint:: Insomnia HPI: Patient addressing Alcohol Dependence comorbid with Nicotine Dependence ROS: Asthma Current Medications: Active Medications Generic Name Dose Route Start Last Admin Trade Name Freq PRN Reason Stop Dose Admin Acetaminophen 650 mg 11/25/16 14:18 Tylenol - PO Q4H PRN FEVER OR PAIN Al Hydroxide/Mg Hydroxide 30 ml 11/25/16 14:18 Mylanta Oral Suspension - PO Q6H PRN DYSPEPSIA Albuterol Sulfate 2 puff 11/25/16 14:18 Ventolin Hfa Inhaler - IH Q4H PRN ASTHMA Diphenhydramine HCl 50 mg 11/25/16 14:18 12/03/16 21:21 Benadryl - PO 50 mg HSMR1 PRN Administration FOR ITCHING Eucalyptus/Menthol/Phenol/Sorbitol 1 each 11/25/16 14:18 Cepastat Lozenge - MM Q4H PRN SORE THROAT Guaifenesin 10 ml 11/25/16 14:18 Robitussin Dm - PO Q6H PRN COUGH Ibuprofen 400 mg 11/25/16 14:18 Motrin - PO Q6H PRN PAIN Loperamide HCl 4 mg 11/25/16 14:18 Imodium - PO Q6H PRN DIARRHEA Magnesium Hydroxide 30 ml 11/25/16 14:18 Milk Of Magnesia - PO DAILY PRN CONSTIPATION Nicotine 14 mg 11/26/16 10:00 12/04/16 10:21 Nicoderm Patch - TD Not Given DAILY SAUD Nicotine Polacrilex 2 mg 11/25/16 14:18 12/04/16 09:46 Nicorette Gum - BUC 2 mg Q2H PRN Administration NICOTINE REPLACEMENT RX Multivit/Folic Acid/Iron 1 tab 11/26/16 10:00 12/04/16 09:45 Vitamins ([facility]) - PO 1 tab DAILY SAUD Administration Pseudoephedrine/Triprolidine 1 combo 11/25/16 14:18 Actifed - PO TID PRN NASAL CONGESTION Thiamine HCl 100 mg 11/25/16 22:00 12/03/16 21:21 Vitamin B1 - PO 100 mg HS SAUD Administration Medication(s) Change(s): Start Trazadone 100 mg po HS for insomnia Current Side Effect: No Lab tests ordered: Yes Lab tests reviewed: Yes Provider note:: Patient reports experiencing difficulty to sleep. Told junior copywriter that he has been sleeping poorly despite taking Benadryl. He requests to be ordered Seroquel to which he responded well in the past for insomnia. When potential adverse-effects(diabetes, tardive dyskenesia etc) were discussed with him, he declined to take it and preferred to take Trazadone instead. Adverse- effects of Trazadone were also presented to patient and he wanted to try it Total face to face time:: 25 Mental Status Exam - Mental Status Exam Alert and Oriented to: Time, Place, Person Cognitive Function: Fair Patient Appearance: Well Groomed Mood: Hopeful, Euthymic Affect: Appropriate Patient Behavior: Cooperative Speech Pattern: Clear Voice Loudness: Normal Thought Process: Intact Thought Disorder: Not Present Hallucinations: Denies Suicidal Ideation: Denies Homicidal Ideation: Denies Insight/Judgement: Fair Sleep: Poorly Appetite: Good Muscle strength/Tone: Normal Gait/Station: Normal Psychiatric Treatment Plan - Problem List (1) Alcohol dependence Current Visit: Yes (2) Nicotine dependence Current Visit: No Qualifiers: Nicotine product type: cigarettes Substance use status: in withdrawal Qualified Code(s): F17.213 - Nicotine dependence, cigarettes, with withdrawal (3) Asthma Current Visit: No Qualifiers: Asthma severity: mild persistent Asthma complication type: with status asthmaticus Qualified Code(s): J45.32 - Mild persistent asthma with status asthmaticus (4) Alcohol-induced sleep disorder Current Visit: Yes Initial treatment plan: 1) Start Trazadone 100 mg po HS for insomnia. 2) Monitor progress
[2016-12-04] MEDS: THIAMINE HCL 100 MG TABLET (FP) PO SCH (21:29)
[2016-12-04] MEDS: diphenhydrAMINE HCL 50 MG CAPSULE PO PRN (21:29)
[2016-12-05] MEDS: NICOTINE POLACRILEX 2 MG GUM BUC PRN ×3 (06:17→21:27)
[2016-12-05] MEDS: NICOTINE 14 MG/24 HOURS TOPICAL PATCH TD SCH (09:46)
[2016-12-05] MEDS: PRENATAL VITAMINS W/ FOLIC ACID TABLET (FP) PO SCH (09:46)
[2016-12-05] MEDS: diphenhydrAMINE HCL 50 MG CAPSULE PO PRN (21:25)
[2016-12-05] MEDS: traZODone HCL 100 MG TABLET (FP) PO SCH (21:25)
[2016-12-05] MEDS: THIAMINE HCL 100 MG TABLET (FP) PO SCH (21:25)
[2016-12-06] MEDS: PRENATAL VITAMINS W/ FOLIC ACID TABLET (FP) PO SCH (09:48)
[2016-12-06] MEDS: NICOTINE 14 MG/24 HOURS TOPICAL PATCH TD SCH (09:48)
[2016-12-06] MEDS: NICOTINE POLACRILEX 2 MG GUM BUC PRN ×2 (09:49→21:38)
--- NOTE | 2016-12-06 10:19 | PN ---
Psychiatric Progress Note Vital Signs: Vital Signs Period Temp Pulse Resp BP Sys/Lux Pulse Ox Last 24 Hr 98.4 F 59 16-16 101/57 Current Medications: Active Medications Generic Name Dose Route Start Last Admin Trade Name Freq PRN Reason Stop Dose Admin Acetaminophen 650 mg 11/25/16 14:18 Tylenol - PO Q4H PRN FEVER OR PAIN Al Hydroxide/Mg Hydroxide 30 ml 11/25/16 14:18 Mylanta Oral Suspension - PO Q6H PRN DYSPEPSIA Albuterol Sulfate 2 puff 11/25/16 14:18 Ventolin Hfa Inhaler - IH Q4H PRN ASTHMA Diphenhydramine HCl 50 mg 11/25/16 14:18 12/05/16 21:25 Benadryl - PO 50 mg HSMR1 PRN Administration FOR ITCHING Eucalyptus/Menthol/Phenol/Sorbitol 1 each 11/25/16 14:18 Cepastat Lozenge - MM Q4H PRN SORE THROAT Guaifenesin 10 ml 11/25/16 14:18 Robitussin Dm - PO Q6H PRN COUGH Ibuprofen 400 mg 11/25/16 14:18 Motrin - PO Q6H PRN PAIN Loperamide HCl 4 mg 11/25/16 14:18 Imodium - PO Q6H PRN DIARRHEA Magnesium Hydroxide 30 ml 11/25/16 14:18 Milk Of Magnesia - PO DAILY PRN CONSTIPATION Nicotine 14 mg 11/26/16 10:00 12/06/16 09:48 Nicoderm Patch - TD Not Given DAILY SAUD Nicotine Polacrilex 2 mg 11/25/16 14:18 12/06/16 09:49 Nicorette Gum - BUC 2 mg Q2H PRN Administration NICOTINE REPLACEMENT RX Multivit/Folic Acid/Iron 1 tab 11/26/16 10:00 12/06/16 09:48 Vitamins (Sjr) - PO 1 tab DAILY SAUD Administration Pseudoephedrine/Triprolidine 1 combo 11/25/16 14:18 Actifed - PO TID PRN NASAL CONGESTION Thiamine HCl 100 mg 11/25/16 22:00 12/05/16 21:25 Vitamin B1 - PO 100 mg HS SAUD Administration Trazodone HCl 100 mg 12/05/16 22:00 12/05/16 21:25 Desyrel - PO 100 mg HS SAUD Administration Total face to face time:: 25 Mental Status Exam - Mental Status Exam Alert and Oriented to: Time Psychiatric Treatment Plan - Problem List (1) Alcohol dependence Current Visit: Yes (2) Nicotine dependence Current Visit: No Qualifiers: Nicotine product type: cigarettes Substance use status: in withdrawal Qualified Code(s): F17.213 - Nicotine dependence, cigarettes, with withdrawal (3) Asthma Current Visit: No Qualifiers: Asthma severity: mild persistent Asthma complication type: with status asthmaticus Qualified Code(s): J45.32 - Mild persistent asthma with status asthmaticus (4) Alcohol-induced sleep disorder Current Visit: Yes Initial treatment plan: Patient will be discharged tomorrow and referred to [facility] for outpatient treatment
[2016-12-06] MEDS: traZODone HCL 100 MG TABLET (FP) PO SCH (21:36)
[2016-12-06] MEDS: THIAMINE HCL 100 MG TABLET (FP) PO SCH (21:36)
[2016-12-06] MEDS: diphenhydrAMINE HCL 50 MG CAPSULE PO PRN (21:38)
[2016-12-07] MEDS: NICOTINE 14 MG/24 HOURS TOPICAL PATCH TD SCH (09:32)
[2016-12-07] MEDS: NICOTINE POLACRILEX 2 MG GUM BUC PRN ×3 (09:32→21:35)
[2016-12-07] MEDS: PRENATAL VITAMINS W/ FOLIC ACID TABLET (FP) PO SCH (09:32)
[2016-12-07] MEDS: traZODone HCL 100 MG TABLET (FP) PO SCH (21:34)
[2016-12-07] MEDS: diphenhydrAMINE HCL 50 MG CAPSULE PO PRN (21:34)
[2016-12-07] MEDS: THIAMINE HCL 100 MG TABLET (FP) PO SCH (21:34)
[2016-12-08] MEDS: NICOTINE POLACRILEX 2 MG GUM BUC PRN ×3 (06:42→21:36)
[2016-12-08] MEDS: PRENATAL VITAMINS W/ FOLIC ACID TABLET (FP) PO SCH (09:56)
[2016-12-08] MEDS: NICOTINE 14 MG/24 HOURS TOPICAL PATCH TD SCH (09:57)
[2016-12-08] MEDS: diphenhydrAMINE HCL 50 MG CAPSULE PO PRN (21:35)
[2016-12-08] MEDS: traZODone HCL 100 MG TABLET (FP) PO SCH (21:35)
[2016-12-08] MEDS: THIAMINE HCL 100 MG TABLET (FP) PO SCH (21:35)
[2016-12-09] MEDS: NICOTINE POLACRILEX 2 MG GUM BUC PRN ×3 (07:21→21:17)
[2016-12-09] MEDS: PRENATAL VITAMINS W/ FOLIC ACID TABLET (FP) PO SCH (09:48)
[2016-12-09] MEDS: NICOTINE 14 MG/24 HOURS TOPICAL PATCH TD SCH (09:48)
[2016-12-09] MEDS: traZODone HCL 100 MG TABLET (FP) PO SCH (21:17)
[2016-12-09] MEDS: diphenhydrAMINE HCL 50 MG CAPSULE PO PRN (21:17)
[2016-12-09] MEDS: THIAMINE HCL 100 MG TABLET (FP) PO SCH (21:17)
[2016-12-10] MEDS: NICOTINE POLACRILEX 2 MG GUM BUC PRN ×2 (06:28→09:58)
--- NOTE | 2016-12-10 06:29 | PN ---
Psychiatric Progress Note Vital Signs: Vital Signs Period Temp Pulse Resp BP Sys/Lux Pulse Ox Last 24 Hr 18-18 Date of Session: 12/10/16 Chief Complaint:: Discharge Note HPI: Patient addressing Alcohol Dependence comorbid with Nicotine Dependence ROS: Asthma Current Medications: Active Medications Generic Name Dose Route Start Last Admin Trade Name Freq PRN Reason Stop Dose Admin Acetaminophen 650 mg 11/25/16 14:18 Tylenol - PO Q4H PRN FEVER OR PAIN Al Hydroxide/Mg Hydroxide 30 ml 11/25/16 14:18 Mylanta Oral Suspension - PO Q6H PRN DYSPEPSIA Albuterol Sulfate 2 puff 11/25/16 14:18 Ventolin Hfa Inhaler - IH Q4H PRN ASTHMA Diphenhydramine HCl 50 mg 11/25/16 14:18 12/09/16 21:17 Benadryl - PO 50 mg HSMR1 PRN Administration FOR ITCHING Eucalyptus/Menthol/Phenol/Sorbitol 1 each 11/25/16 14:18 Cepastat Lozenge - MM Q4H PRN SORE THROAT Guaifenesin 10 ml 11/25/16 14:18 Robitussin Dm - PO Q6H PRN COUGH Ibuprofen 400 mg 11/25/16 14:18 Motrin - PO Q6H PRN PAIN Loperamide HCl 4 mg 11/25/16 14:18 Imodium - PO Q6H PRN DIARRHEA Magnesium Hydroxide 30 ml 11/25/16 14:18 Milk Of Magnesia - PO DAILY PRN CONSTIPATION Nicotine 14 mg 11/26/16 10:00 12/09/16 09:48 Nicoderm Patch - TD Not Given DAILY SAUD Nicotine Polacrilex 2 mg 11/25/16 14:18 12/10/16 06:28 Nicorette Gum - BUC 2 mg Q2H PRN Administration NICOTINE REPLACEMENT RX Multivit/Folic Acid/Iron 1 tab 11/26/16 10:00 12/09/16 09:48 Vitamins (Sjr) - PO 1 tab DAILY SAUD Administration Pseudoephedrine/Triprolidine 1 combo 11/25/16 14:18 Actifed - PO TID PRN NASAL CONGESTION Thiamine HCl 100 mg 11/25/16 22:00 12/09/16 21:17 Vitamin B1 - PO 100 mg HS SAUD Administration Trazodone HCl 100 mg 12/05/16 22:00 12/09/16 21:17 Desyrel - PO 100 mg HS SAUD Administration Current Side Effect: No Lab tests ordered: Yes Lab tests reviewed: Yes Provider note:: Patient has completed this program on today. He has met his treatment goals and will continue to address his issues in outpatient treatment at [facility] at [address] [place] [address]. 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 He responded well to Trazadone 100 mg po HS. Script for 30 days supply of that medication will electronicaly transmitted to [facility]. He is stable for discharge today Total face to face time:: 35 Mental Status Exam - Mental Status Exam Alert and Oriented to: Time, Place, Person Cognitive Function: Fair Patient Appearance: Well Groomed Mood: Hopeful, Euthymic Affect: Appropriate Patient Behavior: Cooperative Speech Pattern: Clear Voice Loudness: Normal Thought Process: Intact, Goal Oriented Thought Disorder: Not Present Hallucinations: Denies Homicidal Ideation: Denies Insight/Judgement: Fair Sleep: Fair Appetite: Good Muscle strength/Tone: Normal Gait/Station: Normal Psychiatric Treatment Plan - Problem List (1) Alcohol dependence Current Visit: Yes (2) Nicotine dependence Current Visit: No Qualifiers: Nicotine product type: cigarettes Substance use status: in withdrawal Qualified Code(s): F17.213 - Nicotine dependence, cigarettes, with withdrawal (3) Asthma Current Visit: No Qualifiers: Asthma severity: mild persistent Asthma complication type: with status asthmaticus Qualified Code(s): J45.32 - Mild persistent asthma with status asthmaticus (4) Alcohol-induced sleep disorder Current Visit: Yes Initial treatment plan: Patient will be discharged today and referred to [facility] for outpatient treatment
[2016-12-10 06:58] VITALS: BP 111/69; PULSE 85; TEMP 97.5
[2016-12-10] MEDS: NICOTINE 14 MG/24 HOURS TOPICAL PATCH TD SCH (09:56)
[2016-12-10] MEDS: PRENATAL VITAMINS W/ FOLIC ACID TABLET (FP) PO SCH (09:56)
== END 2016-12-10 10:12 | disposition home or self-care (01) | DRG 772 ==
LOC: YASAS 11:03 → Y3W 11:04
PROVIDERS: ADMIT Psychiatry & Neurology Psychiatry; ATTEND Psychiatry & Neurology Psychiatry
PROC: HZ42ZZZ Group Counseling for Substance Abuse Treatment, Cognitive-Behavioral (ICD-10-PCS; principal; 2016-11-25)
DX: F10.20 Alcohol dependence, uncomplicated (principal); F10.282 Alcohol dependence with alcohol-induced sleep disorder; F17.210 Nicotine dependence, cigarettes, uncomplicated; J45.909 Unspecified asthma, uncomplicated; Z91.013 Allergy to seafood
CPT/HCPCS: 36415; 87389